=== PATIENT | female | born 1990 | race African-American/Black ===

== ENCOUNTER 2018-08-13 20:19 | Emergency (ER) | payer BC ==
[~2018-08-13] VITALS: Ht 170.2 cm; Wt 126.5 kg
[~2018-08-13 20:19] MED LIST: AUGMENTIN 875875 MG PO; BACTRIM DS TAB1 EACH PO; HYDROCODONE-ACE15 ML PO; IBUPROFEN 800800 MG PO; LOMOTIL TABLET1 EACH PO; Lotrisone; NOHOMEMEDICATIONS; PENICILLIN VK500 MG PO
[2018-08-13 20:35] VITALS: BP 170/78
== END 2018-08-13 22:39 | disposition home or self-care (01) ==
LOC: ER 20:19
DX: N89.8 Other specified noninflammatory disorders of vagina (principal); I10 Essential (primary) hypertension; Z98.51 Tubal ligation status